=== PATIENT | male | born 1985 | race Hispanic/Latino ===

== ENCOUNTER 2024-08-15 22:03 | Emergency (ER) | payer OTHER, SELFPAY ==
[2024-08-15 22:08] VITALS: BP 129/77; PULSE 79; RESP 17; TEMP 37; O2SAT 99; BMI 40.7
--- NOTE | 2024-08-16 02:32 | ED.WOUNDLAC ---
HPI - Wound/Laceration General Chief Complaint: Wound/Laceration Stated Complaint: DEEP CUT EIGHT HAND Time Seen by Provider: 08/16/24 01:42 Source: patient Mode of arrival: Ambulatory History of Present Illness HPI narrative: Otherwise healthy 39-year-old gentleman was barbecuing and the burger Flipper that he was using has a knife on the edge of it that is slipped and ended up cutting the webbing under his thumb on his right hand. Bleeding has been controlled. He is neurovascularly intact. No other injuries. Related Data Allergies Allergy/AdvReac Type Severity Reaction Status Date / Time No Known Drug Allergies Allergy Verified 08/15/24 22:15 Patient History Smoking Status: Never smoker Exam Initial Vital Signs Initial Vital Signs: Vital Signs Temperature 98.6 F 08/15/24 22:08 Pulse Rate 79 08/15/24 22:08 Respiratory Rate 17 08/15/24 22:08 Blood Pressure 129/77 08/15/24 22:08 Pulse Oximetry 99 08/15/24 22:08 Oxygen Delivery Method Room Air 08/15/24 22:08 General: Alert appropriate in no acute distress Respiratory: Able to speak in full sentences, no obvious respiratory distress Skin: No obvious rashes, warm and dry Neurologic: Grossly intact no obvious asymmetries or abnormalities Psych: appropriate insight and affect, cooperative Extremity: 3 cm simple laceration in the webbing of the right hand that does not extend into fascial or tendon layers. Neurovascularly intact Procedures Laceration Repair Base of right thumb: Time of procedure: 03:31 Site: hand Size (cm): 3 Description: linear Depth: simple, single layer Amount of anesthesia used (mL): 3 Pre-repair: wound explored and deep structures intact Skin layer closed with: nylon Skin layer suture size: 4-0 Number of sutures: 3 Technique: simple, interrupted Course Vital Signs Vital signs: Vital Signs - 8 hr 08/15/24 22:08 Temperature 98.6 F Pulse Rate 79 Respiratory Rate 17 Blood Pressure 129/77 Pulse Oximetry 99 Oxygen Delivery Method Room Air MDM - Wound/Laceration MDM Narrative Medical decision making narrative: 39-year-old gentleman with 3 cm laceration to the web of the right hand. Uncomplicated bleeding is controlled, no evidence of deeper tendon or nerve injury. Wound is sutured without complication. Dressing is applied. Tdap is updated, he is given ibuprofen and Tylenol for pain control Recommended sutures removed in 7-10 days. No indication for additional workup or imaging at this time. He is safe for discharge Discharge Plan Departure Patient Disposition: Home Clinical Impression: Laceration Instructions: DI for Laceration Repair Activity Restrictions/Additional Instructions: Thank you for coming in today Fortunately, even though the cut is fairly long it does not go deep. It goes only through the skin and does not involve any of the nerves tendons or blood vessels in your hand. I used 3 stitches to close the wound. Please keep a dressing such as a Band-Aid over the wound to make sure that it stays clean and dry The stitches can come out somewhere between August 23 and . If you are noticing increasing pain, redness, drainage, numbness tingling, swelling to your hand, none of this is normal and you would need to be seen and evaluated You are given a tetanus shot today. This also includes diptheria and pertussis. It is good for 10 years unless you have a deep wound sometime after the 1st 5 years If you find that you are getting worse or develop any new symptoms, please feel free to return to the emergency department for further evaluation. Stand Alone Forms: Patient Portal/API
[2024-08-16] MEDS: IBUPROFEN 400 MG TABLET PO (02:50)
[2024-08-16] MEDS: ACETAMINOPHEN 325 MG TABLET PO (02:50)
[2024-08-16] MEDS: LIDOCAINE 1% (PF) 5 ML INJ (02:51)
[2024-08-16] MEDS: TET,DIPH,PERTUSS(ACELL),VAC/PF 0.5 ML SYRINGE IM (02:51)
[2024-08-16] MEDS: BACITRACIN OINT 0.9 GM PCKT 1 APPLIC TOP (02:51)
[2024-08-16 03:50] VITALS: BP 119/68; PULSE 65; RESP 17; O2SAT 97
--- NOTE | 2024-08-16 03:59 | PC.NURSE ---
Dressed R hand wound with non adherent gauze and gauze wrap.
== END 2024-08-16 04:00 | disposition home or self-care (01) ==
PROVIDERS: Emergency Provider Emergency Medicine
DX: S61.011A Laceration without foreign body of right thumb without damage to nail, initial encounter (principal); W26.0XXA Contact with knife, initial encounter; Z23 Encounter for immunization
CPT/HCPCS: 12002; 90471; 99283; 99284; 90715

== ENCOUNTER 2024-08-26 08:31 | Emergency (ER) | payer BC, SELFPAY ==
[2024-08-26 08:42] VITALS: BP 139/81; PULSE 62; RESP 17; TEMP 36.4; O2SAT 98
--- NOTE | 2024-08-26 08:45 | ED.RECABL ---
HPI - Recheck/Abnormal Lab/Rx General Chief Complaint: Recheck/Abnormal Lab/Rx Stated Complaint: here to get stitches removed Time Seen by Provider: 08/26/24 08:35 Source: patient Mode of arrival: Family Vehicle History of Present Illness HPI narrative: 39-year-old gentleman, laceration to the webspace right hand sutures placed 10 days ago. Here for suture removal. Healing well, no redness no pain Related Data Allergies Allergy/AdvReac Type Severity Reaction Status Date / Time No Known Drug Allergies Allergy Verified 08/26/24 08:42 Patient History Social History Smoking Status: Former smoker Smoking Status: Former smoker tobacco type: cigarettes Exam Initial Vital Signs Initial Vital Signs: Vital Signs Temperature 97.6 F 08/26/24 08:42 Pulse Rate 62 08/26/24 08:42 Respiratory Rate 17 08/26/24 08:42 Blood Pressure 139/81 08/26/24 08:42 Pulse Oximetry 98 08/26/24 08:42 Oxygen Delivery Method Room Air 08/26/24 08:42 Suture site is healing nicely Course Vital Signs Vital signs: Vital Signs - 8 hr 08/26/24 08:42 Temperature 97.6 F Pulse Rate 62 Respiratory Rate 17 Blood Pressure 139/81 Pulse Oximetry 98 Oxygen Delivery Method Room Air MDM - Recheck/Abnormal Lab/Rx MDM Narrative Medical decision making narrative: 39-year-old gentleman, here for suture removal. Wound is healed nicely, sutures removed without complication no further follow up or workup required Discharge Plan Departure Patient Disposition: Home Clinical Impression: Encounter for removal of sutures Instructions: DI for Suture Removal Activity Restrictions/Additional Instructions: I am glad this healed up nicely. If you notice increasing pain the wound opening up or other concerns, please return to the ER Stand Alone Forms: Patient Portal/API
== END 2024-08-26 08:48 | disposition home or self-care (01) ==
PROVIDERS: Emergency Provider Emergency Medicine
DX: Z48.02 Encounter for removal of sutures (principal)
CPT/HCPCS: 99281

== ENCOUNTER → 2024-12-23 08:10 | Outpatient (CLI) | payer BC, SELFPAY ==
[2024-12-23 10:01] LABS: Add Manual Diff / Slide Review NO; Hematocrit 46.0 % (41-53); Hemoglobin 15.5 g/dL (13.5-17.5); Lymphocytes Absolute Auto 2000 /uL (1100-4500); Mean Corpuscular HGB Conc 33.6 % (30-36); Mean Corpuscular Hemoglobin 27.4 PG (26-34); Mean Corpuscular Volume 81.5 fL (80-100); Platelet Count 250 X10^3/uL (150-400)
[2024-12-23 10:10] LABS: Hemoglobin A1C% w Est Avg Glu 5.5 % (4.0-6.0)
[2024-12-23 10:22] LABS: Alanine Aminotransferase 32 IU/L (<50); Albumin 4.7 g/dL (3.5-5.0); Albumin Globulin Ratio 1.4 (1.0-2.8); Alkaline Phosphatase 51 U/L (38-126); Blood Urea Nitrogen 14 mg/dL (9-20); Calcium 9.3 mg/dL (8.4-10.2); Carbon Dioxide 27 mmol/L (22-32); Chloride 102 mmol/L (98-107); Cholesterol 228 mg/dL (140-199); Estimated Glomerular Filt Rate > 60 mL/min (>60); Globulin 3.4 g/dL (1.7-4.1); Glucose 89 mg/dL (70-99); HDL Cholesterol 70 mg/dL (40-60); HEMOLYSIS < 15 (0-50); Potassium 4.8 mmol/L (3.4-5.1); Sodium 136 mmol/L (137-145); Total Protein 8.1 g/dL (6.3-8.2); Triglycerides 136 mg/dL (35-150)
[2024-12-23 11:05] LABS: Vitamin B12 Reflex MMA if <400 657 pg/mL (239-931)
== END ==
PROVIDERS: PCP Family Medicine; Referring Provider Family Medicine; Visit Provider Family Medicine
DX: Z76.89 Persons encountering health services in other specified circumstances (principal); Z68.41 Body mass index [BMI] 40.0-44.9, adult; R20.0 Anesthesia of skin
CPT/HCPCS: 36415; 80053; 80061; 82607; 83036; 85025

== ENCOUNTER 2025-02-14 10:54 | Emergency (ER) | payer BC, SELFPAY ==
[2025-02-14 11:39] VITALS: BP 126/81; PULSE 81; RESP 18; TEMP 37.3; O2SAT 97; BMI 40.4
--- NOTE | 2025-02-14 11:44 | DI.RAD.S_ITS ---
PROCEDURE: XR TIBIA FUBULA RT 2V INDICATIONS: fall TECHNIQUE: 2 views of the tibia and fibula were acquired. COMPARISON: None. FINDINGS: Bones: No fractures or dislocations. No suspicious bony lesions. Soft tissues: No suspicious soft tissue calcifications or masses. IMPRESSION: No acute lower leg fracture or dislocation. Dictated by: Héctor Boyd M.D. on 02/14/2025 at 11:59 Approved by: Héctor Boyd M.D. on 02/14/2025 at 12:06
--- NOTE | 2025-02-14 11:44 | DI.RAD.S_ITS ---
PROCEDURE: XR ANKLE RT MIN 3V INDICATIONS: injury TECHNIQUE: 3 views of the ankle were acquired. COMPARISON: None. FINDINGS: Bones: No fractures or dislocations. Ankle mortise is normally aligned. No suspicious bony lesions. Well-defined plantar calcaneal enthesophyte is seen. Soft tissues: Mild lateral ankle soft tissue swelling is seen. No abnormal soft tissue calcifications. Achilles tendon appears normal. IMPRESSION: No acute ankle fracture or dislocation. Ankle mortise is congruent. Mild lateral ankle soft tissue swelling. Dictated by: Héctor Boyd M.D. on 02/14/2025 at 12:07 Approved by: Héctor Boyd M.D. on 02/14/2025 at 12:07
--- NOTE | 2025-02-14 12:02 | ED.LOWEXIN ---
HPI - Extremity Injury (Lower) <Margarita Francois PA-C - Last Filed: 02/14/25 18:40> General Chief Complaint: Extremity Injury, Lower Stated Complaint: fell-right ankle and leg pain Time Seen by Provider: 02/14/25 11:49 Source: patient Mode of arrival: Family Vehicle History of Present Illness HPI Narrative: Mr. Pitt is a very pleasant 39-year-old male with no reported past medical history presents to the emergency department for right ankle/lower leg injury that occurred prior to arrival. Patient states that he was walking down his driveway when he slipped due to the rain/mud causing his right ankle to twist in the leg to bend next to him. He is now having pain of the right ankle and also the anterior castillo. It is worse in the lateral side. He has pain with ambulation. He has no open wounds or deformities. No calf pain or tenderness. No blood thinner use or head strike. He is here with his spouse. Related Data Home Medications ?Medication ?Instructions ?Recorded ?Confirmed No Known Home Medications 12/15/24 12/15/24 Allergies Allergy/AdvReac Type Severity Reaction Status Date / Time No Known Drug Allergies Allergy Verified 02/14/25 11:38 Review of Systems <Margarita Francois PA-C - Last Filed: 02/14/25 18:40> Review of Systems ROS Unobtainable: All systems reviewed & are unremarkable except as noted in HPI and below Patient History <Margarita Francois PA-C - Last Filed: 02/14/25 18:40> Social History Smoking Status: Former smoker Smoking Status: Former smoker tobacco type: cigarettes Exam <Margarita Francois PA-C - Last Filed: 02/14/25 18:40> Narrative Exam Narrative: GENERAL: 39 year old patient appears stated age. Well-developed patient, in no acute distress. HEAD: Atraumatic. Normocephalic. NECK: Trachea midline. Cervical ROM intact. CARDIOVASCULAR: Regular rate RESPIRATORY: ?Nonlabored respirations. ?Speaking in clear, full sentences.? EXTREMITIES: Nonfocal tenderness to palpation of the lateral right ankle extending onto the lateral castillo. No focal lateral or medial malleolus tenderness. No dorsal midfoot tenderness. Brisk cap refill is present in the toes and there is a strong DP and PT pulse bilaterally. No calf tenderness bilaterally. Palpable Achilles tendons bilaterally. NEURO: AOx3. ?Clear speech. ?SITLT plantar and dorsal aspect of right foot. SKIN: No open wounds, no bruising. Initial Vital Signs Initial Vital Signs: Vital Signs Temperature 99.1 F 02/14/25 11:39 Pulse Rate 81 02/14/25 11:39 Respiratory Rate 18 02/14/25 11:39 Blood Pressure 126/81 02/14/25 11:39 Pulse Oximetry 97 02/14/25 11:39 Oxygen Delivery Method Room Air 02/14/25 11:39 <Lynn Salguero DO - Last Filed: 02/15/25 07:20> Initial Vital Signs Initial Vital Signs: Vital Signs Temperature 99.1 F 02/14/25 11:39 Pulse Rate 81 02/14/25 11:39 Respiratory Rate 18 02/14/25 11:39 Blood Pressure 126/81 02/14/25 11:39 Pulse Oximetry 97 02/14/25 11:39 Oxygen Delivery Method Room Air 02/14/25 11:39 Course <Margarita Francois PA-C - Last Filed: 02/14/25 18:40> Orders Ordered: Discontinued Medications Acetaminophen (Acetaminophen 325 Mg Tablet) 650 mg PO NOW ONE Stop: 02/14/25 12:46 Last Admin: 02/14/25 12:57 Dose: 650 mg Documented By: NICOLLE Ibuprofen (Ibuprofen 400 Mg Tablet) 400 mg PO NOW ONE Stop: 02/14/25 12:46 Last Admin: 02/14/25 12:57 Dose: 400 mg Documented By: NICOLLE Vital Signs Vital signs: Vital Signs - 8 hr 02/14/25 11:39 Temperature 99.1 F Pulse Rate 81 Respiratory Rate 18 Blood Pressure 126/81 Pulse Oximetry 97 Oxygen Delivery Method Room Air <Lynn Salgeuro DO - Last Filed: 02/15/25 07:20> Orders Ordered: Discontinued Medications Acetaminophen (Acetaminophen 325 Mg Tablet) 650 mg PO NOW ONE Stop: 02/14/25 12:46 Last Admin: 02/14/25 12:57 Dose: 650 mg Documented By: NICOLLE Ibuprofen (Ibuprofen 400 Mg Tablet) 400 mg PO NOW ONE Stop: 02/14/25 12:46 Last Admin: 02/14/25 12:57 Dose: 400 mg Documented By: [facility] Vital Signs Vital signs: Vital Signs - 8 hr 02/14/25 11:39 Temperature 99.1 F Pulse Rate 81 Respiratory Rate 18 Blood Pressure 126/81 Pulse Oximetry 97 Oxygen Delivery Method Room Air MDM - Extremity Injury (Lower) <Margarita Francois PA-C - Last Filed: 02/14/25 18:40> Imaging Data Right Ankle X-Ray: Radiologist's Impression: PROCEDURE: XR ANKLE RT MIN 3V INDICATIONS: injury TECHNIQUE: 3 views of the ankle were acquired. COMPARISON: None. FINDINGS: Bones: No fractures or dislocations. Ankle mortise is normally aligned. No suspicious bony lesions. Well-defined plantar calcaneal enthesophyte is seen. Soft tissues: Mild lateral ankle soft tissue swelling is seen. No abnormal soft tissue calcifications. Achilles tendon appears normal. IMPRESSION: No acute ankle fracture or dislocation. Ankle mortise is congruent. Mild lateral ankle soft tissue swelling. Dictated by: Héctor Boyd M.D. on 02/14/2025 at 12:07 Approved by: Héctor Boyd M.D. on 02/14/2025 at 12:07 Right Tib Fib X-Ray: Radiologist's Impression: PROCEDURE: XR TIBIA FUBULA RT 2V INDICATIONS: fall TECHNIQUE: 2 views of the tibia and fibula were acquired. COMPARISON: None. FINDINGS: Bones: No fractures or dislocations. No suspicious bony lesions. Soft tissues: No suspicious soft tissue calcifications or masses. IMPRESSION: No acute lower leg fracture or dislocation. Dictated by: Héctor Boyd M.D. on 02/14/2025 at 11:59 Approved by: Héctor Boyd M.D. on 02/14/2025 at 12:06 [facility] Narrative Medical decision making narrative: 39-year-old male with no reported past medical history presents to the emergency department for right ankle/lower leg injury that occurred prior to arrival. Differential diagnosis includes but isn't limited to right ankle sprain, strain, fracture, dislocation, etc. On exam patient is in no acute distress, nontoxic-appearing, all vital signs within normal limits. He has tenderness to the outside of the right ankle/lower leg after having a twisting type injury. He did not have a head strike or injure any other extremities. No neck or back pain. No blood thinner use. No open wounds or deformities on exam. His right lower extremities neurovascularly intact. X-ray tib-fib and ankle obtained in triage. X-rays reveal no acute lower leg fracture dislocation, no acute ankle fracture or dislocation, ankle mortise is congruent, there is mild lateral ankle soft tissue swelling. After shared decision-making with the patient, patient was placed into a right ankle splint and provided with crutches. Discussed rice therapy, ibu/apap, ER return precautions, PCP/ortho follow up. Patient his verbalized understanding of all information agreeable with the plan. He is stable for discharge home. Discharge Plan Departure Patient Disposition: Home Clinical Impression: Right ankle sprain Qualifiers: Encounter type: initial encounter Involved ligament of ankle: unspecified ligament Qualified Code(s): S93.401A - Sprain of unspecified ligament of right ankle, initial encounter Fall from slipping Qualifiers: Encounter type: initial encounter Qualified Code(s): W01.0XXA - Fall on same level from slipping, tripping and stumbling without subsequent striking against object, initial encounter Instructions: DI for Ankle Sprain Activity Restrictions/Additional Instructions: Dear Mr. Pitt, Thank you for coming to the emergency department. I am sorry that you had a slip and fall today causing a right ankle injury. Your x-ray does not reveal any fractures or dislocations. I am concerned that you have strained the ligaments in the your lateral ankle. Please use the crutches in the brace provided. You may walk once your pain has improved. I do recommend that you wear the brace for at least 2-4 weeks and follow up with your primary care doctor. Please return if any new or worsening symptoms, I do recommend you have repeat x-rays in 7-14 days if your symptoms do not improve. Please use RICE therapy for your pain in addition to ibuprofen/acetaminophen. Rest the painful area. Ice the area of pain/swelling for at least 15 minutes, 4x a day. Compress the area of swelling using a brace, wrap, or splint if applied. Elevate the painful or swollen extremity by supporting it above the level of the heart with pillows when sitting or laying. Please take Ibuprofen (Motrin/Advil) or Acetaminophen (Tylenol) for pain. These are available over the counter. You may take Ibuprofen 600 mg every 8 hours with food for pain. You may also take Acetaminophen 650 mg every 4-6 hours for pain. Do not exceed 3000 mg of Tylenol a day as this can cause liver damage. Do not drink alcohol with either of these medications. Please follow up with your primary care doctor within the next 2-3 days for ER follow-up. (If you do not have a PCP you can call [phone]. ?to schedule an appointment with an [facility] Primary Care Provider) IF YOU DEVELOP ANY NEW OR WORSENING SYMPTOMS, RETURN TO THE ER! Please read the attached instructions, they highlight more specific treatments and interventions for you at home. Thank you for letting me participate in your care, Margarita Francois PA-C Prescriptions: No Action No Known Home Medications Referrals: Kelsey Grant DO [Primary Care Provider, Family Practice] Stand Alone Forms: Patient Portal/API, Work Release Note ED Sign-out <Lynn Salguero DO - Last Filed: 02/15/25 07:20> Cosign ED Attending Maniature Attestation: I was available for consultation.
[2025-02-14] MEDS: IBUPROFEN 400 MG TABLET PO (12:57)
[2025-02-14] MEDS: ACETAMINOPHEN 325 MG TABLET 650 MG PO (12:57)
== END 2025-02-14 13:17 | disposition home or self-care (01) ==
PROVIDERS: Emergency Provider Physician Assistant; PCP Family Medicine
DX: M25.571 Pain in right ankle and joints of right foot (principal); X50.1XXA Overexertion from prolonged static or awkward postures, initial encounter
CPT/HCPCS: 73590; 73610; 99283